=== PATIENT | female | born 1990 | race Two or more races ===

== ENCOUNTER 2018-10-07 05:19 | Day surgery (SDC) | payer MEDICAID ==
[~2018-10-07] VITALS: Ht 144.8 cm; Wt 79.4 kg
[2018-10-07] MEDS ORDERED: LACTATED RINGERS 1,000 ML IV SCH (05:30)
[2018-10-07 05:50] LABS: BASOPHILS % 0.6 % (0.0-2.0); EOSINOPHILS % 3.7 % (0.0-5.0); HEMATOCRIT. 36.7 % (36.0-48.0); HEMOGLOBIN. 12.8 g/dL (12.0-16.0); MEAN CORPUSCULAR HEMOGLOBIN 31.3 pg (28.0-32.0); MEAN CORPUSCULAR VOLUME 89.4 fL (81.0-99.0); MEAN PLATELET VOLUME 7.7 fl (7.4-10.4); MONOCYTES % 8.8 % (2.0-8.0); NEUTROPHILS % 55.9 % (40.0-76.0); PLATELET 301 x1000/uL (130-400)
[2018-10-07 05:53] LABS: CLARITY URINE CLEAR (CLEAR); COLOR URINE YELLOW (YELLOW); KETONES URINE NEGATIVE (NEGATIVE); LEUKOCYTE ESTERASE URINE NEGATIVE (NEGATIVE); NITRITE URINE NEGATIVE (NEGATIVE); OCCULT BLOOD URINE NEGATIVE (NEGATIVE); PROTEIN URINE NEGATIVE (NEGATIVE); SPECIFIC GRAVITY URINE 1.015 (1.005-1.030); UROBILINOGEN URINE 0.2 E.U./dL (0.2-1.0)
[2018-10-07 05:56] LABS: CHLORIDE 107 mEq/L (98-107)
[2018-10-07 06:01] LABS: PARTIAL THROMBOPLASTIN TIME 27.1 sec (23.4-31.0); PROTHROMBIN TIME 10.3 sec (9.6-11.0)
[2018-10-07 06:31] LABS: UCG SCREEN NEGATIVE
[2018-10-07] MEDS ORDERED: BUPIVACAINE HCL/PF 0.5% (5MG/ML) 10ML ONE (06:45)
[2018-10-07] MEDS ORDERED: VASOPRESSIN 20 UNIT/ML 1ML ONE (06:45)
[2018-10-07] MEDS ORDERED: METHYLENE BLUE 50 MG/10 ML AMP IV ONE (06:45)
[2018-10-07] MEDS ORDERED: FENTANYL CITRATE/PF 50MCG/ML 2ML VIAL ONE (07:24)
[2018-10-07] MEDS ORDERED: ROCURONIUM BROMIDE 10MG/ML VIAL 5ML IV ONE (07:24)
[2018-10-07] MEDS ORDERED: NEOSTIGMINE METHYLSULFATE 1MG/ML 10 ML VIAL ONE (07:24)
[2018-10-07] MEDS ORDERED: PROPOFOL 200MG/20ML VIAL IV ONE (07:24)
[2018-10-07] MEDS ORDERED: MIDAZOLAM HCL 2 MG/2 ML VIAL ONE (07:24)
[2018-10-07] MEDS ORDERED: GLYCOPYRROLATE 0.2 MG/ML 2ML VIAL ONE (07:24)
[2018-10-07] MEDS ORDERED: LIDOCAINE HCL/PF 1% 10 MG/ML 5ML VIAL ONE (07:27)
[2018-10-07] MEDS ORDERED: SUCCINYLCHOLINE CHLORIDE 200MG/10ML IV ONE (07:27)
[2018-10-07] MEDS ORDERED: KETOROLAC 30MG/ML VIAL ONE (08:24)
[2018-10-07] MEDS ORDERED: DEXAMETHASONE 4MG/ML 1ML VIAL ONE (08:25)
[2018-10-07] MEDS ORDERED: ONDANSETRON HCL 4MG/2ML INJ ONE (08:25)
[2018-10-07] MEDS ORDERED: MEPERIDINE HCL/PF 25MG/ML CPJ IV PRN (09:45)
[2018-10-07] MEDS ORDERED: ONDANSETRON HCL 4MG/2ML INJ IV PRN (09:45)
[2018-10-07] MEDS ORDERED: MORPHINE SULFATE 4 MG/ML CPJ (NOT FOR IM USE) IV PRN (09:45)
[2018-10-07] MEDS ORDERED: IBUPROFEN 800MG TABLET PO NR (09:45)
[2018-10-07] MEDS ORDERED: HYDROCODONE/ACETAMINOPHEN 5/325MG TABLET PO PRN (09:45)
== END 2018-10-07 11:15 | disposition home or self-care (01) ==
LOC: OR 05:19
PROVIDERS: ATTEND Obstetrics & Gynecology
DX: Z30.2 Encounter for sterilization (principal); Z64.1 Problems related to multiparity; E66.9 Obesity, unspecified; Z90.49 Acquired absence of other specified parts of digestive tract
CPT/HCPCS: 36415; 58670; 80053; 81003; 81025; 85025; 85610; 85730; C1725; J0330; J1100; J1885; J2250; J2405; J2704; J2710; J3010; J3490; Q9968